=== PATIENT | male | born 1980 ===

== ENCOUNTER 2017-01-25 18:45 | Emergency (ER) | payer SELFPAY ==
[2017-01-25] MEDS ORDERED: NORCO 5-325 TA1 EACH PO (19:49)
[2017-01-25] MEDS ORDERED: BACTRIM DS TAB1 EAC2 PO (19:49)
== END 2017-01-25 20:11 ==
LOC: EDMED 18:45
PROC: 0H9KXZZ Drainage of Right Lower Leg Skin, External Approach (ICD-10-PCS; principal; 2017-01-25)
DX: L02.415 Cutaneous abscess of right lower limb (principal); F17.200 Nicotine dependence, unspecified, uncomplicated